=== PATIENT | male | born 1975 | race Caucasian/White ===

== ENCOUNTER 2024-07-05 08:27 | Day surgery (SDC) | payer BC, SELFPAY ==
[2024-07-05] VITALS (21 sets, daily range): BP systolic 117–144; BP diastolic 67–96; PULSE 45–74; RESP 14–20; TEMP 36–36.7; O2SAT 95–98; BMI 25.1
[2024-07-05] MEDS: LACTATED RINGERS 1000 ML 1,000 ML 100 ML IV (09:00)
[2024-07-05] MEDS: ACETAMINOPHEN 500 MG TABLET 1000 MG PO ×2 (09:00→18:54)
[2024-07-05] MEDS: SODIUM CHLORIDE 0.9 % (FLUSH) 10 ML SYRINGE IVF (09:00)
[2024-07-05] MEDS: OXYCODONE (CR) 10 MG TAB.ER.12H PO (09:00)
--- NOTE | 2024-07-05 09:01 | W.PM.H&PU ---
History & Physical Update History & Physical Update H&P Reviewed and patient assessed: No changes noted
[2024-07-05] MEDS: fentaNYL 100 MCG/2 ML inj IVP (09:57)
[2024-07-05] MEDS: MIDAZOLAM HCL 1 MG/ML inj IVP (09:57)
--- NOTE | 2024-07-05 10:03 | P.NB_ITS ---
Nerve Block Nerve Block Time Seen by Provider: 10:00 Date Seen: 07/05/24 Type of block requested by surgeon for post-operative analgesia: NAVID/LFCN Side: left Time out performed: Yes Verification of patient name: Yes Verification of date of : Yes Site marking: site marked Name of person performing procedure: Seng Continuous monitoring Was continuous monitoring of O2 sat, B/P, radiation monitor, recorded every 15 minutes?: Yes Procedure Checklist: sterile prep, needles and gloves Ultrasound guided. Images saved: Yes Medications given in 5ml increments after negative aspiration: Ropivicaine %: 0.5 mL: 30 Needle gauge: 20 Precedex (mcg): 25 Patient tolerated procedure well: Yes Additional comments: Needle noted below psoas tendon needle noted adjacent to LFCN Block Charges Block Charge (with Pro Fee): Other Periph Nerve Block Use of Ultrasound Machine for Block: Yes- US Guidance/pain block
--- NOTE | 2024-07-05 10:04 | W.ANESCHARGE ---
Anesthesia Charges Start Date/Time Anesthesia Start Date: 07/05/24 Anesthesia Start Time: 10:37 Stop Date/Time Anesthesia Stop Date: 07/05/24 Anesthesia Stop Time: 13:15
--- NOTE | 2024-07-05 10:25 | SUR.PREOP ---
TIME?OUT:?0957 PT/RN/MDA?VERIFICATION?OF?SURGICAL?SITE,?PROCEDURE,?AND?CONSENT OBTAINED?PRIOR?TO?INVASIVE?PROCEDURE.
--- NOTE | 2024-07-05 10:45 | CRLHL7_ITS ---
For Patients: As a result of the Cures Act, medical imaging exams and procedure reports are released immediately into your electronic medical record. You may view this report before your referring provider. If you have questions, please contact your health care provider. Indication: Hip replacement surgery Technique: AP hip fluoroscopic image. Fluoroscopy time 48.4 seconds. Findings/Impression: Hardware from a left total hip arthroplasty is in satisfactory position. Dictated by Jerry Green MD @ 07/05/2024 1:03:13 PM (Electronically Signed)
[2024-07-05] MEDS: CEFAZOLIN 2 GM in 0.9 % SODIUM CHLORIDE Mini-bag 100 ML IVPB ×2 (10:56→18:26)
[2024-07-05] MEDS: TRANEXAMIC ACID 100 MG/ML INJ 1000 MG IV (10:56)
--- NOTE | 2024-07-05 11:27 | CRLHL7_ITS ---
For Patients: As a result of the Century Cures Act, medical imaging exams and procedure reports are released immediately into your electronic medical record. You may view this report before your referring provider. If you have questions, please contact your health care provider. Indication: Postop left ZENY Technique: AP hip centered pelvis and lateral view left hip Findings/Impression: Hardware from a left total hip arthroplasty is in satisfactory position. Bone alignment is normal. No sign of acute fracture. Postop changes are within normal limits. Joint space narrowing and spurring at the right hip with chronic ossicle adjacent to the right lateral acetabulum measuring 1.3 cm. Dictated by Jerry Green MD @ 07/06/2024 10:07:46 AM (Electronically Signed)
--- NOTE | 2024-07-05 13:19 | W.ANESCHARGE ---
Anesthesia Charges Start Date/Time Anesthesia Start Date: 07/05/24 Anesthesia Start Time: 10:37 Stop Date/Time Anesthesia Stop Date: 07/05/24 Anesthesia Stop Time: 13:15
--- NOTE | 2024-07-05 13:22 | P.ORPRC_ITS ---
Procedure Note Date of procedure: 07/05/24 Procedure: PREOPERATIVE DIAGNOSIS: 1. Left hip osteoarthritis, severe, primary POSTOPERATIVE DIAGNOSIS: 1. Left hip osteoarthritis, severe, primary PROCEDURE: 1. Left total hip arthroplasty-anterior approach 2. 62076 - intraoperative fluoroscopy up to 1 hour. SURGEON: Keaton Waddell MD. GIANT TIRE REPAIRER: Eric Alonso PA-C; Lynda Mosley PA-C - Of note, a skilled assistant merchandiser was critical for this case to aid in patient positioning, tissue retraction, limb manipulation/positioning, dislocation/relocation, patient safety, and closure. ANESTHESIA: General endotracheal anesthetic EBL: 250 mL IMPLANTS: DePuy J&J uncemented total hip [place] cup size 56, hole eliminator, +4 neutral liner Actis stem, high offset, size 6 +1.5 mm ceramic 36 mm head. COMPLICATIONS: None evident INDICATIONS: The patient is a pleasant 48-year-old male who has experienced severe left hip pain and difficulty bearing weight. Workup included x-rays which revealed severe osteoarthrosis in the hip. Given the deformity, the dysfunction, and the pain, as well as the failure of nonoperative management, recommendation was made for surgery. FINDINGS: Full-thickness chondral loss diffusely throughout the femoral head and acetabulum. Large osteophytes on the femoral head/neck junction and perimeter of the acetabulum. A very large 1 approaching the size of a large grape and nearly a golf ball over the lateral acetabulum that was appreciated preoperatively. Moderate effusion upon entering the joint. DESCRIPTION OF PROCEDURE: Following a thorough discussion of risks, benefits, and alternatives consent was obtained and the left hip was marked. The patient was brought to the operating room and placed supine on the operating table. Induction of anesthesia was undertaken. 2 g IV Ancef and 1 g tranexamic acid was administered within 1 hr of incision preoperatively. Proper time-out was performed identifying proper patient, site, procedure. The operative extremity was prepped and draped in the appropriate sterile fashion using ChloraPrep after the patient was positioned on the Kamuela table with head in neutral alignment and all bony prominences well padded. C-arm fluoroscopic imaging was utilized to confirm proper pelvis rotation and position, and to get true AP films of both the contralateral left, and the affected left hip. This is for comparison. A longitudinal incision was made starting approximately 1 cm distal to the ASIS, and 3-4 cm lateral. The incision was extended distally aiming toward the lateral border the patella. Sharp incision through skin and bovie cautery throu gh the subcutaneous tissue allowed identification of the TFL fascia. This was sharply divided, and the fascia bluntly released from the muscle fibers as we dissected medial. Upon coming to the medial border, we were able to retract the TFL laterally, and penetrated the deeper fascia and identify the crossing circumflex vessels. These were ligated/cauterized. The rectus was elevated from the capsule, and retractors placed laterally and medially along the femoral neck to help with visualization of the capsule. We then performed an inverted T capsulotomy. The capsule was tagged for later re pair. Retractors were placed inside the capsule. The femoral neck was visualized after releasing medially down to the lesser trochanter, along the saddle laterally, and up onto the acetabulum. The femoral neck cut was made in line with our preoperative templating. The head was removed in a single piece, and sized. We turned our attention to acetabular preparation. Initially, the labrum was resected from around the perimeter, the pulvinar was excised, allowing us to visualize the false wall. We started the reaming with a 43 mm reamer. This was medialized down to the true wall. We then enlarged our reamers sequentially up to one size less than the selected cup size. We trialed at the same size and found it to have an excellent fit. The selected cup was then opened, inserted, and impacted in line with the goal of 40-45? of abduction, and 20-25? of anteversion. This was confirmed on C-arm fluoroscopic imaging to be in the appropriate/goal position. Once the cup was placed we placed a hole eliminator and a liner consistent with preop planning. Attention was turned to the femoral preparation. The limb was extended, externally rotated, and adducted. The posteromedial capsule was released, as retractors were placed allowing excellent access to the proximal femur. Initially a box spring maker was followed by canal finder followed by various broaches. We broached sequentially up to size noted above, found it to have excellent rotational control, and trialing various heads and necks, revealed that appropriate neck offset, and the above noted head size provided the greatest stability, and spiritism of length, and offset. C-arm fluoroscopic imaging confirmed position of the stem, as well as leg lengths, which were compared with the pre procedure all fluoroscopic images. Trial implants were removed, the real femoral stem inserted, as was the ceramic head. After reducing, the leg was placed through range of motion and stability was confirmed anterior, posterior, and lateral. A 3 min Betadine soak was then performed, and thorough irrigation with normal saline followed. Closure of the capsule was performed with #1 PDS. Bleeding was confirmed to be controlled at this stage, and the TFL fascia was closed with #0 strata fix. Subcutaneous, and subcuticular closure was performed with 2-0 Vicryl and 4-0 Monocryl, respectively. Dressings were applied, and the patient was awoken from anesthesia and transferred the PACU in stable condition. A skilled assistant merchandiser was critical for this case to aid in patient positioning, tissue retraction, proximal femur exposure, limb manipulation/positioning, dislocation/relocation, patient safety, and closure. PLAN: 1. Weight bear as tolerated operative extremity. 2. 23 hr perioperative antibiotics. 3. Ice. 4. PT/OT consults for ambulation assistance/mobility education. 5. Social work consult for discharge planning. 6. DVT prophylaxis with at SCDs and Xarelto x5 days followed by aspirin for a total of 1 month..
[2024-07-05] MEDS: fentaNYL 100 MCG/2 ML inj 50 MCG IVP ×2 (13:31→14:10)
[2024-07-05] MEDS: hydrOXYzine pamoate 25 MG CAPSULE PO (14:10)
[2024-07-05] MEDS: OXYCODONE 5 MG TABLET PO (14:10)
[2024-07-05] MEDS: METOCLOPRAMIDE HCL 5 MG/ML INJ 10 MG IVP (15:00)
[2024-07-05] MEDS: 0.9 % SODIUM CHLORIDE 500 ML 500 ML 100 ML IV (15:00)
[2024-07-05] MEDS: ONDANSETRON 2 MG/ML inj 4 MG IVP ×2 (17:30→19:45)
--- NOTE | 2024-07-05 17:49 | SUR.PHASEII ---
Patient experiencing PONV. Vitals remained at baseline with movement. Pain well controlled and reported at 3/10. moving well with walker. 1.5L infused of LR/NS. 600cc total emesis thus far. up to BR, unable to void. Pt transferred to M/S after therapy. Pt and spouse agreeable to plan
--- NOTE | 2024-07-05 18:08 | PM.IMCN1 ---
Date of Consult Patient: Derick Patient Consult date: 07/05/24 Requesting Physician: Orthopedics Primary Care Provider: Rafael Almaraz MD Consult Narrative Reason for consult: Postoperative nausea and vomiting Narrative: Masoud Luis is a 48 year old male who presented to the hospital today for an elective L ZENY. There were no surgical or anesthetic complications noted during procedure. Postoperatively, he had intractable nausea and vomiting, was unable to discharge from same day surgery as a result. VS reassuring. PCP is Dr Almaraz at [facility]. Past medical history significant for: Good health History of blood clots: No Postoperative plan: Home with , lives locally. Lamy principal. Review of Systems Status of ROS: Reports: 10 or more systems reviewed and unremarkable except as noted in History and below PFSH PFSH Medical History (Updated 07/05/24 @ 19:00 by Tena Bearden MD) Degenerative disc disease Surgical History (Updated 07/05/24 @ 18:59 by Tena Bearden MD) History of total right hip replacement ?Z96.641 - Presence of right artificial hip joint (ICD-10) History of tonsillectomy ?Z90.89 - Acquired absence of other organs (ICD-10) History of facial surgery ?Z98.890 - Other specified postprocedural states (ICD-10) Status post surgical removal of ganglion cyst (1994) ?Z98.890 - Other specified postprocedural states (ICD-10) History of vasectomy ?Z98.52 - Vasectomy status (ICD-10) Family History (Updated 06/01/24 @ 16:11 by Mine [place] [facility] Maternal Grandmother Heart disease Social History (Updated 06/01/24 @ 16:12 by Mine [place] ~ [facility]) Narrative: -Margaret Smoking Status: Never smoker Do you use any of these nicotine containing products: None Second hand tobacco smoke exposure: No How often do you have a drink containing alcohol: never AUDIT-C Alcohol total score: 0 Non-prescribed substance use: denies use Caffeine: Yes (1c/day) Meds Home Medications and Allergies Home Medications ?Medication ?Instructions ?Recorded ?Confirmed ?Type celecoxib 200 mg capsule 200 mg PO DAILY 06/06/24 07/05/24 History Allergies Allergy/AdvReac Type Severity Reaction Status Date / Time No Known Drug Allergies Allergy Verified 07/05/24 08:37 Exam Narrative: Exam Narrative: Mildly pale, otherwise nontoxic Const: Vital Signs, click to edit/add: Vital Signs - 24 hr 07/05/24 09:17 07/05/24 09:58 07/05/24 10:05 Temperature 96.8 F L Pulse Rate 53 L 48 L 48 L Respiratory Rate 16 16 16 Blood Pressure 134/96 H 131/82 120/77 Pulse Oximetry 96 96 98 Oxygen Delivery Me thod Room Air Nasal Cannula Nasal Cannula Oxygen Flow Rate 2 2 07/05/24 10:15 07/05/24 13:13 07/05/24 13:15 Temperature 97.2 F L Pulse Rate 53 L 71 70 Respiratory Rate 16 16 16 Blood Pressure 117/71 137/83 129/81 Pulse Oximetry 96 95 96 Oxygen Delivery Me thod Nasal Cannula Room Air Oxygen Flow Rate 2 07/05/24 13:20 07/05/24 13:25 07/05/24 13:30 Temperature 97 F L Pulse Rate 60 56 L 60 Respiratory Rate 16 16 16 Blood Pressure 125/85 122/74 125/71 Pulse Oximetry 96 95 95 Oxygen Delivery Me thod Room Air Oxygen Flow Rate 07/05/24 13:35 07/05/24 13:40 07/05/24 13:45 Temperature 97.1 F L Pulse Rate 48 L 54 L 45 L Respiratory Rate 16 16 14 Blood Pressure 119/68 122/81 130/72 Pulse Oximetry 96 98 98 Oxygen Delivery Me thod Room Air Oxygen Flow Rate 07/05/24 13:48 07/05/24 14:00 07/05/24 14:15 Temperature 97.1 F L 97 F L Pulse Rate 52 L 50 L 46 L Respiratory Rate 14 16 16 Blood Pressure 132/78 140/88 H 142/87 H Pulse Oximetry 97 97 97 Oxygen Delivery Me thod Room Air Room Air Room Air Oxygen Flow Rate 0 0 07/05/24 14:30 07/05/24 14:45 07/05/24 15:00 Temperature Pulse Rate 60 52 L 50 L Respiratory Rate 16 16 16 Blood Pressure 144/93 H 130/84 122/69 Pulse Oximetry 96 97 95 Oxygen Delivery Me thod Room Air Room Air Room Air Oxygen Flow Rate 0 0 0 07/05/24 15:30 Temperature Pulse Rate 53 L Respiratory Rate 16 Blood Pressure 125/70 Pulse Oximetry 95 Oxygen Delivery Me thod Room Air Oxygen Flow Rate 0 Assessment and Plan Assessment and plan (1) History of total right hip replacement: Problem comment: - 07/05/24, Dr. Waddell Status: Acute (2) Nausea and vomiting after administration of anesthetic agent: Problem comment: - continue prn medication, advance diet as tolerated Status: Acute
[2024-07-05] MEDS: LACTATED RINGERS 1000 ML 1,000 ML 75 ML IV (18:25)
[2024-07-05] MEDS: SENNOSIDES 1 TAB TABLET 2 TAB PO (20:39)
[2024-07-06 00:05] VITALS: BP 126/68; PULSE 68; RESP 16; TEMP 36.6; O2SAT 97
[2024-07-06] MEDS: ACETAMINOPHEN 500 MG TABLET 1000 MG PO ×2 (00:17→06:33)
[2024-07-06] MEDS: CEFAZOLIN 2 GM in 0.9 % SODIUM CHLORIDE Mini-bag 100 ML IVPB (02:12)
[2024-07-06 02:18] VITALS: BP 112/64; PULSE 63; RESP 16; TEMP 36.9; O2SAT 96
--- NOTE | 2024-07-06 07:04 | PC.NURSE ---
Pt is alert and oriented x3. Afebrile. Pt reported nausea at beginning of shift 1900 no emesis, PRN Zofran given with relief.?Pt was to eat?applesauce and pudding, tolerated well. Pt reports 4/10 pain in left hip, pain managed with ice pack and scheduled medications. Pt reports they have not passed gas yet. Bowel sounds are active. ? ?
[2024-07-06 07:08] LABS: Basophils Percent Auto 0.1 % (0.0-3.0); Eosinophils Percent Auto 0.1 % (0.0-7.0); Hematocrit 35.3 % (37.0-53.0); Hemoglobin* 11.7 gm/dL (13.5-17.5); Immature Granulocytes Pct Auto 0.2 %; Lymphocytes Percent Auto 9.1 % (20-44); Mean Corpuscular HGB Conc 33 gm/dL (32-36); Mean Corpuscular Hemoglobin 29 pg (26-34); Mean Corpuscular Volume 86 fL (80-100); Monocytes Percent Auto 13.8 % (0.0-11.0); Neutrophils Percent Auto 76.7 % (42.0-72.0); Platelet Count* 197 K/uL (140-440); RDW Coefficient of Variation % 13.2 % (11.5-15.5); White Blood Count* 17.21 K/uL (4.50-11.00)
[2024-07-06 07:18] LABS: Slide Review Reflex No
[2024-07-06 07:25] LABS: Chloride* 106 mmol/L (96-114); Potassium* 4.2 mmol/L (3.6-5.1); Sodium* 137 mmol/L (135-149)
[2024-07-06 07:28] LABS: Anion Gap 5 mEq/L (7-15); Blood Urea Nitrogen* 12 mg/dL (5-24); Carbon Dioxide* 26 mmol/L (20-32); Creatinine* 0.9 mg/dL (0.5-1.5); Est. Creatinine Clearance* 119.97; Estimated Glomerular Filt Rate 105 ml/min; Glucose* 120 mg/dL (60-115)
[2024-07-06 07:29] LABS: Calcium* 8.8 mg/dL (8.4-10.6)
[2024-07-06 07:40] VITALS: BP 111/67; PULSE 74; RESP 16; TEMP 36.5; O2SAT 97
[2024-07-06] MEDS: SENNOSIDES 1 TAB TABLET 2 TAB PO (08:19)
[2024-07-06] MEDS: RIVAROXABAN 10 MG TABLET PO (08:19)
--- NOTE | 2024-07-06 10:25 | PC.NURSE ---
Nursing discharge: Pt has been A&O, afebrile and VSS on day of discharge. Denies nausea this morning and tolerated oral intake with breakfast. Ambulating SBA with 2ww with a steady gait. Adequate U/O. Left hip dressing C/D/I with some mild redness to the lateral aspect. Active ice on/off as pt requests. Reports pain at rest at 2-3/10 and pain with movement at 4-5/10. Reports scheduled Tylenol has been adequately controlling pain. Refusing narcotics at this time d/t fear of N/V returning. IS provided to patient. Pt denied needing Zofran prior to discharge. Bowel sounds have been active, no distention noted. Patient's is at bedside. Discharge education reviewed with both patient and his who verbalized understanding. Patient discharged via W/C accompanied by KEVAN & at 0940.
--- NOTE | 2024-07-06 14:26 | P.ORPN_ITS ---
Subjective Subjective Date Seen: 07/06/24 Principal diagnosis: Status postop day 1, left total hip arthroplasty - anterior approach Interval history: Patient reports doing a little better. No current nausea; he was a same day joint, but due to intractable nausea and vomiting, he stayed the night. Zofran is helpful. He is a little concerned about taking the oxycodone as he feels this may cause some of the nausea. Currently, pain managed with scheduled and PRN medications (acetaminophen only), ice. DVT prophylaxis: Rivaroxaban, SCDs, walking. Denies fevers, chills, aches, vomiting, CP, SOB/SÁNCHEZ, or lightheadedness. Ortho Exam Narrative Exam Narrative: -Patient appears comfortable in bad; no apparent acute distress. present -Alert and oriented times 3 -Operative hip moderately swollen; soft tissues supple; no obvious erythema. Ecchymosis minimal. Warmth appropriate -Surgical dressing clean, dry, intact; no obvious drainage, no erythematous st reaking peripheral to the bandage -Bilateral calves soft and supple; no significant swelling, edema, tenderness, erythema, discoloration, warmth, or palpable cords -2+ DP/PT pulses, intact dermatomes and myotomes distally (5/5 strength). Mild numbness about the lateral femoral cutaneous nerve distribution. Const Vital Signs, click to edit/add: Vital Signs - 24 hr 07/05/24 14:30 07/05/24 14:45 07/05/24 15:00 Temperature Pulse Rate 60 52 L 50 L Pulse Rate [Pulse Oximeter] Respiratory Rate 16 16 16 Blood Pressure 144/93 H 130/84 122/69 Blood Pressure [Left Arm] Blood Pressure [Right Arm] Pulse Oximetry 96 97 95 Oxygen Delivery Method Room Air Room Air Room Air Oxygen Flow Rate 0 0 0 07/05/24 15:30 07/05/24 18:05 07/05/24 20:27 Temperature 98.0 F Pulse Rate 53 L 70 Pulse Rate [Pulse Oximeter] 74 Respiratory Rate 16 18 20 Blood Pressure 125/70 123/67 Blood Pressure [Left Arm] 132/75 Blood Pressure [Right Arm] Pulse Oximetry 95 98 98 Oxygen Delivery Method Room Air Room Air Room Air Oxygen Flow Rate 0 07/06/24 00:05 07/06/24 00:05 07/06/24 02:18 Temperature 97.9 F 98.4 F Pulse Rate Pulse Rate [Pulse Oximeter] 68 63 Respiratory Rate 16 16 16 Blood Pressure Blood Pressure [Left Arm] 126/68 112/64 Blood Pressure [Right Arm] Pulse Oximetry 97 97 96 Oxygen Delivery Method Room Air Room Air Room Air Oxygen Flow Rate 0 07/06/24 07:40 07/06/24 07:40 07/06/24 07:40 Temperature 97.7 F Pulse Rate Pulse Rate [Pulse Oximeter] 74 74 Respiratory Rate 16 16 16 Blood Pressure Blood Pressure [Left Arm] Blood Pressure [Right Arm] 111/67 Pulse Oximetry 97 97 Oxygen Delivery Method Room Air Room Air Oxygen Flow Rate Assessment and Plan Assessment and plan (1) History of total right hip replacement: Problem details: Left total hip arthroplasty-anterior approach (07/05/24, Dr. Waddell) Status: Acute (2) Nausea and vomiting after administration of anesthetic agent: Problem details: - continue prn medication, advance diet as tolerated Status: Acute Plan - Complete 23 hour perioperative antibiotics. - PT/OT consult for education and assistance. - Social work consult for discharge planning - Prescribed analgesics as needed - still feel patient should have oxycodone for pain on hand; cut tablets in half if needed. Take Zofran as needed. Remain scheduled with acetaminophen. - DVT prophylaxis: Rivaroxaban, walking, and SCDs - Anticipation is for discharge to home with family/friends today 07/06/2024 if the patient remains medically stable, nausea is controlled, pain is controlled, and they are safe with mobilization.
== END 2024-07-06 09:40 | disposition home or self-care (01) ==
LOC: OR 08:27 → MEDSURG 17:48
PROVIDERS: Family Medicine; PCP Family Medicine; Visit Provider Orthopaedic Surgery Sports Medicine
PROC: (CPT 27130; principal; 2024-07-05 10:45)
DX: M16.12 Unilateral primary osteoarthritis, left hip (principal); G89.18 Other acute postprocedural pain; R11.2 Nausea with vomiting, unspecified; Z96.641 Presence of right artificial hip joint
CPT/HCPCS: 27130; 01214; 36415; 64450; 73501; 76000; 76942; 80048; 85025; 86850; 86900; 86901; 97110; 97161; 97165; 97530; A9270; C1776; J0330; J0690; J1100; J1171; J1630; J2250; J2405; J2704; J2710; J2765; J2795; J3010; J7030; J7120